=== PATIENT | female | born 1965 | race Two or more races ===

== ENCOUNTER 2018-06-25 14:29 | Outpatient (CLI) | payer OTHER | END 2018-06-25 14:33 | disposition home or self-care (01) | LOC: SONOGRAMA 14:29 | DX: M25.512 Pain in left shoulder (principal) ==

== ENCOUNTER 2018-07-17 08:29 | Outpatient (CLI) | payer OTHER | END 2018-07-17 09:23 | disposition home or self-care (01) | LOC: RAD 08:29 | DX: R07.89 Other chest pain (principal) ==

== ENCOUNTER 2018-09-13 13:10 | Outpatient (CLI) | payer OTHER | END 2018-09-13 13:31 | disposition home or self-care (01) | LOC: RAD 13:10 → MRI 13:15 → RAD 13:31 | DX: M25.561 Pain in right knee (principal); M25.562 Pain in left knee | CPT/HCPCS: 73721 ==

== ENCOUNTER 2018-09-29 12:46 | Outpatient (CLI) | payer OTHER | END 2018-09-29 12:57 | disposition home or self-care (01) | LOC: SONOGRAMA 12:46 → MAMO-SONO 13:15 | DX: E04.8 Other specified nontoxic goiter (principal) ==

== ENCOUNTER 2020-01-13 11:26 | Outpatient (CLI) | payer OTHER | END 2020-01-13 11:29 | disposition home or self-care (01) | LOC: MRI 11:26 | PROVIDERS: ATTEND Orthopaedic Surgery | DX: M54.5 Low back pain (principal); M25.512 Pain in left shoulder | CPT/HCPCS: 72141 ==